=== PATIENT | female | born 1985 | race African-American/Black ===

== ENCOUNTER 2016-06-29 15:48 | Emergency (ER) | payer OTHER, MEDICARE ==
[~2016-06-29 15:48] MED LIST: FERROUS GLUCON324 M2 PO
[2016-09-06] MEDS ORDERED: NEURONTIN 400400 MG PO (07:37)
[2016-09-06] MEDS ORDERED: LIPITOR TAB 1010 MG PO (07:37)
[2016-09-06] MEDS ORDERED: VENLAFAXINE HC100 MG PO (07:38)
[2016-09-06] MEDS ORDERED: CLARITIN 10MG T10 MG PO (07:38)
[2016-09-06] MEDS ORDERED: IBUPROFEN800 MG PO (07:39)
[2016-09-06] MEDS ORDERED: FOLIC ACID1 MG PO (07:39)
[2016-09-06] MEDS ORDERED: ZOLPIDEM TARTRA10 MG PO (07:39)
[2016-09-06] MEDS ORDERED: PROMETHAZINE HC25 M1 PO (07:40)
[2016-09-06] MEDS ORDERED: CYCLOBENZAPRINE10 MG PO (07:40)
[2016-09-06] MEDS ORDERED: OMEPRAZOLE40 MG PO (07:41)
[2016-09-06] MEDS ORDERED: HYDROXYZINE HCL25 MG PO (07:41)
== END 2016-06-29 16:53 | disposition home or self-care (01) ==
LOC: ER1 15:48
DX: S16.1XXA Strain of muscle, fascia and tendon at neck level, initial encounter (principal); Z88.5 Allergy status to narcotic agent; X58.XXXA Exposure to other specified factors, initial encounter
CPT/HCPCS: 96372; 99283; J1100; J1885

== ENCOUNTER → 2020-07-27 | Day surgery (SDC) | payer MEDICARE, OTHER ==
[~2020-07-27] VITALS: Ht 167.6 cm; Wt 92.1 kg
[~2020-07-27] MED LIST changes: +ABILIFY10 MG PO; +CLARITIN 10MG T10 MG PO; +CYCLOBENZAPRINE10 MG PO; +DEXTROAMP-AMPHE10 MG PO; +FOLIC ACID1 MG PO; +GABAPENTIN800 MG PO; +HYDROXYZINE HCL25 MG PO; +IBUPROFEN800 MG PO; +LEVOCETIRIZINE D5 MG PO; +LIPITOR TAB 1010 MG PO; +NEURONTIN 400400 MG PO; +OMEPRAZOLE40 MG PO; +PROMETHAZINE HC25 M1 PO; +VENLAFAXINE HC100 MG PO; +VENTOLIN HFA 66.7 GM INH; +ZANAFLEX 4 MG TA4 MG PO; +ZOLPIDEM TARTRA10 MG PO
== END | disposition home or self-care (01) ==
LOC: OR 05:53
DX: K92.1 Melena (principal); F31.9 Bipolar disorder, unspecified; F41.9 Anxiety disorder, unspecified; G43.909 Migraine, unspecified, not intractable, without status migrainosus; M19.90 Unspecified osteoarthritis, unspecified site; K21.9 Gastro-esophageal reflux disease without esophagitis; G35 Multiple sclerosis; E78.5 Hyperlipidemia, unspecified; M06.00 Rheumatoid arthritis without rheumatoid factor, unspecified site; F17.210 Nicotine dependence, cigarettes, uncomplicated; G47.30 Sleep apnea, unspecified; F12.10 Cannabis abuse, uncomplicated; Z80.0 Family history of malignant neoplasm of digestive organs; Z88.6 Allergy status to analgesic agent; Z88.5 Allergy status to narcotic agent; Z88.8 Allergy status to other drugs, medicaments and biological substances; Z79.899 Other long term (current) drug therapy
CPT/HCPCS: 36415; 84703; J2250; J2704; J7030

== ENCOUNTER → 2020-10-18 | Outpatient (CLI) | payer MEDICARE, OTHER | LOC: EXRD 11:10 | DX: M47.22 Other spondylosis with radiculopathy, cervical region (principal) | CPT/HCPCS: 72040 ==

== ENCOUNTER 2021-04-04 07:48 | Emergency (ER) | payer MEDICARE, OTHER ==
[2021-04-04 09:06] LABS: HEMOGLOBIN 12.7 gm/dl (12.3-15.3); RED BLOOD COUNT 4.12 M/UL (4.00-5.10); WHITE BLOOD COUNT 6.8 K/UL (4.5-11.0)
[2021-04-04 09:45] LABS: BUN/CREATININE RATIO 13 (0-10)
== END 2021-04-04 14:36 | disposition home or self-care (01) ==
LOC: ER1 07:48
PROVIDERS: Physician Assistant
DX: R07.89 Other chest pain (principal); Z86.16 Personal history of COVID-19
CPT/HCPCS: 71045; 80053; 81001; 82550; 82553; 83690; 83874; 84484; 85025; 85379; 87086; 93005; 96374; 96375; 99285; C9113; J1885

== ENCOUNTER → 2021-07-04 | Outpatient (CLI) | payer MEDICARE, OTHER | LOC: HEART 5 06-29 09:00 | DX: R06.02 Shortness of breath (principal); R07.89 Other chest pain; I08.1 Rheumatic disorders of both mitral and tricuspid valves | CPT/HCPCS: 93306 ==